=== PATIENT | female | born 1935 | race Two or more races ===

== ENCOUNTER 2020-03-13 16:42 | Inpatient (IN) | payer BC, MEDICARE, OTHER ==
[~2020-03-13] VITALS: Ht 152.4 cm; Wt 59.0 kg
[2020-03-13 17:32] LABS: BASOPHILS # (AUTO) 0.1 K/uL (0.0-8.0); BASOPHILS % (AUTO) 0.8 % (0.0-2.0); EOSINOPHILS # (AUTO) 1.3 K/uL (0.0-0.7); EOSINOPHILS % (AUTO) 20.4 % (0.0-7.0); HEMATOCRIT 32.2 % (31.2-41.9); HEMOGLOBIN 10.6 g/dL (10.9-14.3); LYMPHOCYTES # (AUTO) 1.6 K/uL (20.0-40.0); LYMPHOCYTES % (AUTO) 25.1 % (20.5-51.5); MEAN CORPUSCULAR HEMOGLOBIN 29.1 uug (24.7-32.8); MEAN CORPUSCULAR HGB CONC 33 g/dL (32.3-35.6); MEAN CORPUSCULAR VOLUME 88.4 fL (75.5-95.3); MONOCYTES # (AUTO) 0.6 K/uL (2.0-10.0); MONOCYTES % (AUTO) 9.5 % (0.0-11.0); NEUTROPHILS # (AUTO) 2.9 K/uL (1.8-8.9); NEUTROPHILS % (AUTO) 44.2 % (38.5-71.5); PLATELET COUNT (AUTO) 172 K/uL (179-408); RED BLOOD CELL COUNT(AUTO) 3.64 MIL/uL (3.63-4.92); WHITE BLOOD COUNT (AUTO) 6.5 K/uL (3.8-11.8)
[2020-03-13 17:39] LABS: CARBON DIOXIDE 24 mmol/L (21-32); CHLORIDE 106 mmol/L (98-107); CREATININE 1.6 mg/dL (0.6-1.3); GLUCOSE 136 mg/dL (74-106); POTASSIUM 4.2 mmol/L (3.5-5.1); UREA NITROGEN, BLOOD 28 mg/dL (7-18)
[2020-03-13 17:45] LABS: ALANINE AMINOTRANSFERASE 15 U/L (14-59); ALKALINE PHOSPHATASE 53 U/L (50-136); ASPARTATE AMINOTRANSFERASE 12 U/L (15-37); BILIRUBIN,DIRECT 0.1 mg/dL (0.0-0.2); BILIRUBIN,TOTAL 0.3 mg/dL (0.2-1.0); ETHANOL < 3 MG/DL (0-0); TOTAL PROTEIN, SERUM 6.2 g/dL (6.4-8.2)
[2020-03-13 17:46] LABS: ACETAMINOPHEN < 2.0 ug/mL (10-30)
[2020-03-13 17:56] LABS: BAND % (MANUAL) 3 % (0-10); LYMPHOCYTES % (MANUAL) 23 % (20-40); MONOCYTES % (MANUAL) 10 % (2-10); NEUTROPHILS % (MANUAL) 47 % (42-75)
[2020-03-13 17:57] LABS: EOSINOPHILS % (MANUAL) 17 % (0-8)
[2020-03-13] MEDS ORDERED: METO-357 PO (18:06)
[2020-03-13] MEDS ORDERED: HYDR100T27 PO (18:06)
[2020-03-13] MEDS ORDERED: AMLO10TA7 PO (18:06)
[2020-03-13] MEDS ORDERED: LOSA25TA27 PO (18:06)
[2020-03-13] MEDS ORDERED: ATOR40TA PO (18:06)
[2020-03-13 18:19] LABS: *BILIRUBIN,URIN NEGATIVE (NEGATIVE); *BLOOD, URINE NEGATIVE (NEGATIVE); *COLOR,URINE YELLOW (YELLOW); *KETONES,URINE NEGATIVE (NEGATIVE); *UROBILINOGEN,URINE 0.2 E.U./dl (NORMAL); LEUKOCYTE ESTERASE ,URINE 1+ (NEGATIVE); NITRITE, URINE NEGATIVE (NEGATIVE); UGLUCOSE NEGATIVE (NEGATIVE)
[2020-03-13 18:28] LABS: *CLARITY,URINE HAZY (CLEAR)
[2020-03-13 18:30] LABS: BACTERIA,URINE FEW /HPF (NONE SEEN); RBC,URINE 0-3 /HPF (0-3); SQUAMOUS EPITHELIAL CELL,UR MANY /HPF (NONE SEEN)
[2020-03-13 18:33] LABS: *AMPHETAMINE, URINE NEGATIVE (NEGATIVE); *BARBITURATE, URINE NEGATIVE (NEGATIVE); *CANNABINOID, URINE NEGATIVE (NEGATIVE); *COCCAINE, URINE NEGATIVE (NEGATIVE); *OPIATE, URINE NEGATIVE (NEGATIVE); *PHENCYCLIDINE SCREEN,URINE NEGATIVE (NEGATIVE)
--- NOTE | 2020-03-13 19:21 | NUR ---
Called Faustina from crisis team. Will be here in 1 hr.
--- NOTE | 2020-03-13 20:35 | NUR ---
Pt. admitted to [facility] Room 139A, under care of Dr. Parada Belongs List completed. All belongings with patient. No s/s distress.
[2020-03-13 20:50] VITALS: BP 172/65
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
[2020-03-13] MEDS ORDERED: CLONIDINE HCL 0.1 MG TABLET PO PRN (21:15)
[2020-03-13] MEDS ORDERED: ACETAMINOPHEN 325 MG TABLET PO PRN (21:15)
[2020-03-13] MEDS ORDERED: TEMAZEPAM 7.5 MG CAPSULE PO PRN (21:15)
[2020-03-13] MEDS ORDERED: hydrALAZINE HCL 50 MG TABLET PO ONE (21:15)
[2020-03-13] MEDS ORDERED: MAGNESIUM HYDROXIDE 30 ML LIQUID UDC PO PRN (21:15)
[2020-03-13] MEDS ORDERED: CLONAZEPAM 0.5 MG TABLET PO PRN (21:15)
[2020-03-13] MEDS: CEphaleXIN 500 MG CAPSULE PO SCH (21:41)
[2020-03-13] MEDS: ATORVASTATIN 40 MG TABLET PO SCH (21:41)
[2020-03-13] MEDS ORDERED: hydrALAZINE HCL 50 MG TABLET ONE (22:17)
[2020-03-14 07:40] LABS: THYROID STIMULATING HORMONE 2.389 mIU/mL (0.358-3.740)
[2020-03-14 07:48] VITALS: BP 122/50
[2020-03-14] MEDS: METOPROLOL SUCCINATE XL 50 MG TAB.SR.24H PO SCH (08:59)
[2020-03-14] MEDS: AMLODIPINE 10 MG TABLET PO SCH (08:59)
[2020-03-14] MEDS: CEphaleXIN 500 MG CAPSULE PO SCH ×2 (09:00→16:26)
[2020-03-14] MEDS ORDERED: Medication Not On Formulary EA (Hydralazine Hcl 1 TAB) PO SCH (09:00)
[2020-03-14] MEDS: LOSARTAN POTASSIUM 25 MG TABLET PO SCH (09:01)
[2020-03-14] MEDS: hydrALAZINE HCL 50 MG TABLET PO SCH ×3 (09:05→16:27)
--- NOTE | 2020-03-14 10:30 | NUR ---
Social Work Initial Discharge Planning: Patient currently resides at [address] [place] [address]; ([phone]). Patient resides with her son Jake ([phone]) and is involed in pt's care. Per Jake, he stated that he is the DPOA and will fax this show card writer the documents. Per Jake, he wants patient back home upon discharge. trim line worker will work with the patient and the MD regarding appropriate discharge planning. trim line worker will form a safe and proper discharge.
--- NOTE | 2020-03-14 10:30 | NUR ---
Social Work Family Contact: This keno writer/runner contacted patient's son Jake ([phone]) and gathered collateral information. This keno writer/runner discussed treatment plan and discharge plan. Per Jake, he wants patient back home upon discharge. Per Jake, he stated that he is the DPOA and will fax the documents to this keno writer/runner.
--- NOTE | 2020-03-14 10:45 | NUR ---
Gps/Goat Driver- Patient was able to talked to her sister. Anxious, worried about her belongings imformed her belongings are in the safe including her meds. she brought in. (Pharm.)
--- NOTE | 2020-03-14 11:00 | NUR ---
Gps/Fuel System Maintenance Worker- Alert, oriented x 1-2 , ambulates around, quiet, denies S.I.,Patient not sure about the date and year claimed it is 2009 this year.Kept asking for her clothes, claimed she needs to put on her clothes her sister is coming and she needs to leave.. Had denture full upper ion. Encouraged to attend her group therapy.
--- NOTE | 2020-03-14 11:15 | NUR ---
UR Note: recycle worker received email from Hitesh Dorothy who stated that Brynn Douglas ([phone]) ext [phone] is the [employer]ner and is able to authorize stay until March 19. This health technical writer contacted Brynn Douglas ([phone]) and left a voicemail to call this health technical writer back to provide authorization number.
--- NOTE | 2020-03-14 12:41 | NUR ---
Social Work Individual Therapy Note: custodial maintenance worker met with patient for brief counseling and assessed for level of suicidality. custodial maintenance worker assessed for suicidal thoughts, patient denied suicidal thoughts and stated that "I would never want to kill myself, that is crazy". Patient expressed that she is not SI and that she has never been SI. custodial maintenance worker provided comfort and actively listened. custodial maintenance worker will continue to follow-up. custodial maintenance worker encouraged patient to talk to someone if she were to have suicidal thoughts.
[2020-03-14 14:12] LABS: BASOPHILS % (AUTO) 0.1 % (0.0-2.0); EOSINOPHILS # (AUTO) 1.5 K/uL (0.0-0.7); EOSINOPHILS % (AUTO) 23.9 % (0.0-7.0); HEMATOCRIT 34.2 % (31.2-41.9); LYMPHOCYTES # (AUTO) 1.5 K/uL (20.0-40.0); LYMPHOCYTES % (AUTO) 23.1 % (20.5-51.5); MEAN CORPUSCULAR HEMOGLOBIN 28.7 uug (24.7-32.8); MEAN CORPUSCULAR HGB CONC 32 g/dL (32.3-35.6); MEAN CORPUSCULAR VOLUME 88.9 fL (75.5-95.3); MONOCYTES # (AUTO) 0.6 K/uL (2.0-10.0); MONOCYTES % (AUTO) 9.3 % (0.0-11.0); NEUTROPHILS # (AUTO) 2.8 K/uL (1.8-8.9); NEUTROPHILS % (AUTO) 43.6 % (38.5-71.5); PLATELET COUNT (AUTO) 179 K/uL (179-408); RED BLOOD CELL COUNT(AUTO) 3.85 MIL/uL (3.63-4.92); WHITE BLOOD COUNT (AUTO) 6.3 K/uL (3.8-11.8)
[2020-03-14 14:16] LABS: CARBON DIOXIDE 24 mmol/L (21-32); CHLORIDE 107 mmol/L (98-107); CREATININE 1.4 mg/dL (0.6-1.3); GLUCOSE 101 mg/dL (74-106); MAGNESIUM 2.1 mg/dL (1.8-2.4); POTASSIUM 4.1 mmol/L (3.5-5.1); UREA NITROGEN, BLOOD 23 mg/dL (7-18)
[2020-03-14 14:44] LABS: BAND % (MANUAL) 0 % (0-10); MONOCYTES % (MANUAL) 6 % (2-10); NEUTROPHILS % (MANUAL) 44 % (42-75)
[2020-03-14 14:45] LABS: EOSINOPHILS % (MANUAL) 27 % (0-8); LYMPHOCYTES % (MANUAL) 23 % (20-40)
[2020-03-14 16:00] VITALS: BP 126/49
--- NOTE | 2020-03-14 16:12 | NUR ---
Gps/Inserting Machine Operator-Had EKG done this pm as ordered by Dr Valladares , results as noted in the chart , raphael guy MD to review. result.
[2020-03-14] MEDS: busPIRone 5 MG TABLET PO SCH (16:26)
[2020-03-14 20:00] VITALS: BP 137/53
[2020-03-14] MEDS: ATORVASTATIN 40 MG TABLET PO SCH (20:15)
[2020-03-15 07:30] VITALS: BP 143/48
[2020-03-15] MEDS: hydrALAZINE HCL 50 MG TABLET PO SCH ×3 (09:00→17:03)
[2020-03-15] MEDS: busPIRone 5 MG TABLET PO SCH ×3 (09:24→17:02)
[2020-03-15] MEDS: CEphaleXIN 500 MG CAPSULE PO SCH ×2 (09:24→17:01)
[2020-03-15] MEDS: METOPROLOL SUCCINATE XL 50 MG TAB.SR.24H PO SCH (09:25)
[2020-03-15] MEDS: LOSARTAN POTASSIUM 25 MG TABLET PO SCH (09:26)
[2020-03-15] MEDS: AMLODIPINE 10 MG TABLET PO SCH (09:26)
--- NOTE | 2020-03-15 11:20 | NUR ---
UR Note: social worker school spoke with Brynn Douglas ([phone]) ext [phone] is the Energy Crop Farmer and authorized stay until March 19. Reference #[id number].
--- NOTE | 2020-03-15 12:24 | NUR ---
Social Work Individual Therapy Note: sprinkler worker met with patient for brief counseling and assessed for level of suicidality. sprinkler worker assessed for suicidal thoughts, patient denied suicidal thoughts. Patient expressed that she is not SI and that she has never been SI. Patient continuously states that "she is not a patient here and that she needs to go home". Patient is unable to have a meaningful conversation with this gag writer. sprinkler worker provided comfort and actively listened. sprinkler worker will continue to follow-up.
[2020-03-15] MEDS: DIVALPROEX 125 MG TABLET.DR PO SCH ×2 (12:52→20:37)
[2020-03-15 15:44] VITALS: BP 129/43
[2020-03-15] MEDS: ATORVASTATIN 40 MG TABLET PO SCH (20:37)
[2020-03-15 20:54] VITALS: BP 150/47
--- NOTE | 2020-03-15 21:15 | NUR ---
GPS/PT UP IN ACTIVITY ROOM, SITTING UP BUT NOTED SPACING INTO THE AIR FEW TIMES. RESPONSIVE AND DENIED SI. NO THOUGHT OF HARMING SELF OR OTHERS. PT COOPERATIVE WITH MEDICATIONS. SHE SAID SHE WANT TO STAY THERE FOR LONG SHE WANT. ENCOURAGED TO VENT OUT FEELINGS. WILL CONTINUE TO MONITOR.
[2020-03-16 07:30] VITALS: BP 139/55
[2020-03-16] MEDS: busPIRone 5 MG TABLET PO SCH ×3 (08:52→17:00)
[2020-03-16] MEDS: DIVALPROEX 125 MG TABLET.DR PO SCH ×2 (08:52→20:19)
[2020-03-16] MEDS: CEphaleXIN 500 MG CAPSULE PO SCH ×2 (08:52→17:00)
[2020-03-16] MEDS: AMLODIPINE 10 MG TABLET PO SCH (08:53)
[2020-03-16] MEDS: LOSARTAN POTASSIUM 25 MG TABLET PO SCH (08:54)
[2020-03-16] MEDS: METOPROLOL SUCCINATE XL 50 MG TAB.SR.24H PO SCH (09:01)
[2020-03-16] MEDS: hydrALAZINE HCL 50 MG TABLET PO SCH ×3 (09:06→17:02)
--- NOTE | 2020-03-16 10:37 | NUR ---
Gps/Leisure Travel Agent- Patient's son Jake called, wants to know progress of the patient, claimed " my Mom does not belong there, when is she gonna be discharge?" Instructed the need to talk to his Mom Psychiatrist, informed patient has episode of being anxious, standing by the Nurses station, looking outside wants her clothes she is going home per patient. Interacting with some of the staff, speaks Scottish.
[2020-03-16 16:00] VITALS: BP 137/48
--- NOTE | 2020-03-16 17:00 | NUR ---
Gps/Client Account Specialist- Attended her group therapy this am, stayed in the patio during lunch time, cooperative with staff. Had been doing puzzles . Redirectable.
[2020-03-16] MEDS: ATORVASTATIN 40 MG TABLET PO SCH (20:19)
[2020-03-16 20:57] VITALS: BP 146/48
[2020-03-17 07:30] VITALS: BP 138/48
[2020-03-17] MEDS: CEphaleXIN 500 MG CAPSULE PO SCH ×2 (08:22→17:17)
[2020-03-17] MEDS: busPIRone 5 MG TABLET PO SCH ×3 (08:22→17:17)
[2020-03-17] MEDS: DIVALPROEX 125 MG TABLET.DR PO SCH ×2 (08:22→20:34)
[2020-03-17] MEDS: METOPROLOL SUCCINATE XL 50 MG TAB.SR.24H PO SCH (08:23)
[2020-03-17] MEDS: AMLODIPINE 10 MG TABLET PO SCH (08:23)
[2020-03-17] MEDS: LOSARTAN POTASSIUM 25 MG TABLET PO SCH (08:24)
[2020-03-17] MEDS: hydrALAZINE HCL 50 MG TABLET PO SCH ×3 (08:25→17:39)
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
[2020-03-17 12:29] LABS: *BILIRUBIN,URIN NEGATIVE (NEGATIVE); *BLOOD, URINE NEGATIVE (NEGATIVE); *COLOR,URINE LIGHT YELLOW (YELLOW); *KETONES,URINE NEGATIVE (NEGATIVE); *UROBILINOGEN,URINE 0.2 E.U./dl (NORMAL); LEUKOCYTE ESTERASE ,URINE TRACE (NEGATIVE); NITRITE, URINE NEGATIVE (NEGATIVE); PH,URINE 5.5 (5.0-8.0); UGLUCOSE NEGATIVE (NEGATIVE)
[2020-03-17 12:40] LABS: *CLARITY,URINE SLIGHTLY HAZY (CLEAR)
[2020-03-17 12:42] LABS: *CREATININE,URINE 52.1 mg/dL (30-125); *URINE TOTAL PROTEIN RANDOM 42.2 mg/dL (<150/24HR)
[2020-03-17 13:12] LABS: RBC,URINE 0-3 /HPF (0-3)
[2020-03-17 13:13] LABS: BACTERIA,URINE FEW /HPF (NONE SEEN); SQUAMOUS EPITHELIAL CELL,UR MODERATE /HPF (NONE SEEN)
[2020-03-17 16:00] VITALS: BP 134/47
--- NOTE | 2020-03-17 17:19 | NUR ---
Gps/Metal Die Finisher-Patient started to get more confused this pm,trying to fine her way out, claimed she needs to go home, instructed and informed she is at [facility]. and Psychiatrist trying to help her regulate her med. reoriented from time to time, claimed she does not belong here she does not know who brought her here . Interacting fairly with her roommate.Patient was able to talked to her son yesterday as well as her sister twice.
[2020-03-17] MEDS: ATORVASTATIN 40 MG TABLET PO SCH (20:35)
[2020-03-17 20:41] VITALS: BP 133/49
--- NOTE | 2020-03-17 21:00 | NUR ---
GPS/RN: PT WAS IN BED SITTING UP AND CONVERSING WITH ROOMMATE. A/O X2, WITH NOTED WORRISOME. PT REQUESTED WHY SHE IS HERE AND WANT TO GO HOME. ORIENTED TO REALITY AND ENCOURAGED TO VENT OUT FEELINGS. PT COOPERATIVE WITH ROUTINE MEDICATIONS AND CARE. WILL MONITOR AND Q 15/MINS HEAD COUNT WILL CONTINUE.
[2020-03-18 07:30] VITALS: BP 147/46
[2020-03-18 08:00] LABS: BASOPHILS # (AUTO) 0.1 K/uL (0.0-8.0); EOSINOPHILS # (AUTO) 1.1 K/uL (0.0-0.7); EOSINOPHILS % (AUTO) 19.4 % (0.0-7.0); LYMPHOCYTES # (AUTO) 2.1 K/uL (20.0-40.0); MEAN CORPUSCULAR HEMOGLOBIN 29.5 uug (24.7-32.8); MEAN CORPUSCULAR HGB CONC 33 g/dL (32.3-35.6); MEAN CORPUSCULAR VOLUME 88.8 fL (75.5-95.3); MONOCYTES # (AUTO) 0.5 K/uL (2.0-10.0); MONOCYTES % (AUTO) 8.9 % (0.0-11.0); NEUTROPHILS # (AUTO) 1.8 K/uL (1.8-8.9); NEUTROPHILS % (AUTO) 32.7 % (38.5-71.5); PLATELET COUNT (AUTO) 202 K/uL (179-408); RED BLOOD CELL COUNT(AUTO) 3.72 MIL/uL (3.63-4.92); WHITE BLOOD COUNT (AUTO) 5.6 K/uL (3.8-11.8)
[2020-03-18 08:13] LABS: ALANINE AMINOTRANSFERASE 15 U/L (14-59); ALKALINE PHOSPHATASE 56 U/L (50-136); ASPARTATE AMINOTRANSFERASE 14 U/L (15-37); BILIRUBIN,TOTAL 0.5 mg/dL (0.2-1.0); CARBON DIOXIDE 25 mmol/L (21-32); CHLORIDE 108 mmol/L (98-107); CREATINE KINASE, TOTAL 57 U/L (26-192); CREATININE 1.9 mg/dL (0.6-1.3); GLUCOSE 106 mg/dL (74-106); MAGNESIUM 2.3 mg/dL (1.8-2.4); PHOSPHOROUS 4.1 mg/dL (2.5-4.9); POTASSIUM 4.6 mmol/L (3.5-5.1); TOTAL PROTEIN, SERUM 6.9 g/dL (6.4-8.2); UREA NITROGEN, BLOOD 33 mg/dL (7-18)
[2020-03-18] MEDS: CEphaleXIN 500 MG CAPSULE PO SCH ×2 (09:02→17:26)
[2020-03-18] MEDS: AMLODIPINE 10 MG TABLET PO SCH (09:03)
[2020-03-18] MEDS: DIVALPROEX 125 MG TABLET.DR PO SCH (09:03)
[2020-03-18] MEDS: busPIRone 5 MG TABLET PO SCH ×3 (09:04→17:26)
[2020-03-18] MEDS: hydrALAZINE HCL 50 MG TABLET PO SCH ×3 (09:08→17:25)
--- NOTE | 2020-03-18 11:29 | NUR ---
UR Note: mobile home lot utility worker spoke with Brynn Douglas ([phone]) ext [phone] is the Aircraft Instrument Tester and authorized stay until March 19. Reference #[id number]. This conventional mortgage underwriter contacted Brynn Douglas to send clinicals. This conventional mortgage underwriter left verbal clinicals on Brynn's voicemail and is waiting for her call back.
--- NOTE | 2020-03-18 11:34 | NUR ---
Social Work Family Contact: Patient's son Jake ([phone]) is patient's DPOA and sent this personal lines underwriter documents. This personal lines underwriter placed the documents in patient's chart.
[2020-03-18] MEDS: LOSARTAN POTASSIUM 25 MG TABLET PO SCH (13:10)
[2020-03-18] MEDS: METOPROLOL SUCCINATE XL 50 MG TAB.SR.24H PO SCH (13:11)
--- NOTE | 2020-03-18 13:13 | NUR ---
Social Work Firearms Report: Engine Generator Assembler completed and submitted a [employer] firearms report for 5250 grave disability certification. A copy of report has been placed in patient chart.
--- NOTE | 2020-03-18 13:23 | NUR ---
Social Work Discharge: Patient will be discharged home back to [address] [place] [address]; ([phone]). Patients Jake ([phone]) will meat pickler patient at 6PM. Patients son Jake ([phone]) is aware and agreeable with discharge plan. Patient is aware and agreeable with discharge plan. Patient denies suicidal or homicidal ideation. Patient presents with appropriate mood and congruent affect. Patient is alert and oriented x2 and is agreeable to go back home. Patient is referred to [facility] [address] [place] [id number] ([phone]), spoke with Emily, no appointments required patient will need to walk in for an initial evaluation and a psychiatrist will be provided. Patient will also be following up with her (physician) Dr. Rodriguez on March 19, 2020 at 2PM at [address] ([phone]). Patient was provided with outpatient mental health resources to [facility] Crisis Line , the National Suicide Prevention Lifeline , and the [facility] Substance Abuse Helpline ([phone]). Patient presents with euthymic mood and congruent affect.
[2020-03-18 15:33] VITALS: BP 129/52
[2020-03-18 17:25] VITALS: BP 129/52
--- NOTE | 2020-03-18 17:51 | NUR ---
Spoke with patient's son, Jake. The patient uses [facility] pharmacy ([phone]) in [place]. Notified dr. Sahu, who will call in patient's prescriptions.
--- NOTE | 2020-03-18 18:15 | NUR ---
1800 discharged instructions given to her nepheww, Douglasroderick Iverson regarding medications to continue at upon discharged and prescription for medical given. Also, informed that the psych prescription called in by Dr. Sahu to patient pharmacy as per charged nurse. Nephew verbalized understanding Discharged home stable conditiopn,, patient refused SI/HI. No delusion . No a/v hallucinatio noted.
[2020-03-19 12:17] LABS: A/G RATIO 1.1 (0.7-1.7); ALBUMIN 3.1 g/dL (2.9-4.4); ALPHA-1-GLOBULIN 0.3 g/dL (0.0-0.4); ALPHA-2-GLOBULIN 0.7 g/dL (0.4-1.0); BETA GLOBULIN 0.9 g/dL (0.7-1.3); GAMMA GLOBULIN 0.9 g/dL (0.4-1.8); GLOBULIN, TOTAL 2.8 g/dL (2.2-3.9); M-SPIKE Not Observed g/dL (Not Observed)
== END 2020-03-18 18:00 | disposition home or self-care (01) | DRG 885 ==
LOC: ER 16:48 → GPS 20:30
PROVIDERS: ADMIT Psychiatry & Neurology Psychosomatic Medicine; ATTEND Nurse Practitioner Acute Care
DX: F29 Unspecified psychosis not due to a substance or known physiological condition (principal); F01.50 Vascular dementia, unspecified severity, without behavioral disturbance, psychotic disturbance, mood disturbance, and anxiety; N17.0 Acute kidney failure with tubular necrosis; G93.41 Metabolic encephalopathy; N39.0 Urinary tract infection, site not specified; E44.1 Mild protein-calorie malnutrition; E88.09 Other disorders of plasma-protein metabolism, not elsewhere classified; I10 Essential (primary) hypertension; E11.9 Type 2 diabetes mellitus without complications; Z68.25 Body mass index [BMI] 25.0-25.9, adult; F41.9 Anxiety disorder, unspecified; I45.10 Unspecified right bundle-branch block; R94.31 Abnormal electrocardiogram [ECG] [EKG]; Z73.6 Limitation of activities due to disability
CPT/HCPCS: 36415; 70030-TC; 80307; 80329; 83735; 83970; 84100; 84155; 84156; 84165; 84300; 84443; 85025; 87086; 93005; 93307; A4663; G0480; G0480-TC